=== PATIENT | male | born 1980 | race Caucasian/White ===

== ENCOUNTER 2023-06-25 14:50 | Emergency (ER) | payer OTHER ==
[2023-06-25 15:07] VITALS: RESP 18; TEMP 97.7
[2023-06-25] MEDS ORDERED: ONDANSETRON 4 MG/2 ML VIAL IVP STA (16:25)
[2023-06-25] MEDS ORDERED: SODIUM CHLORIDE 0.9% 1,000 ML IV STA (16:25)
[2023-06-25] MEDS ORDERED: KETOROLAC 15 MG/ML 1 ML VIAL IVP STA (16:25)
--- NOTE | 2023-06-25 16:44 | ED ---
General Adult HPI - General Chief complaint: Abdominal Pain Stated complaint: Groin Pain Time Seen by Provider: 06/25/23 16:15 Source: patient, RN notes reviewed, old records reviewed Mode of arrival: ambulatory - History of Present Illness Initial comments: Patient is a 43-year-old male presents for a department for right lower quadrant abdominal/groin pain. He has been ongoing for 3-4 days. 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 States the patient is more or less constant. No known palliative or provocative factors. Sometimes elevation in the testicles does help with the pain. Denies any dysuria or hematuria. Denies any diarrhea, nausea, vomiting, constipation. Denies any history of STDs. Denies any penile discharge. Presents for further evaluation at this time. Denies chest pain or shortness of breath. No known sick contacts. - Related Data Previous Rx's Medication Instructions Recorded Ondansetron Odt [Zofran Odt] 4 mg PO Q8HR PRN 2 Days #6 tab 06/25/23 Tamsulosin [Flomax] 0.4 mg PO DAILY 7 Days #7 cap 06/25/23 Allergies Allergy/AdvReac Type Severity Reaction Status Date / Time No Known Allergies Allergy Verified 06/25/23 15:07 Review of Systems ROS Statement: Those systems with pertinent positive or pertinent negative responses have been documented in the HPI. Review of Systems: CONST: Denies fever EYES: Denies blurry vision ENT: Denies nasal congestion C/V: Denies Chest pain RESP: Denies shortness of breath GI: Endorses abdominal pain : Endorses intermittent right scrotal pain SKIN: Denies rash. MSK: Denies joint pain. NEURO: Denies headache ROS Other: All systems not noted in ROS Statement are negative. Past Medical History Past Medical History: No Reported History, Hypertension History of Any Multi-Drug Resistant Organisms: None Reported Past Surgical History: No Surgical Hx Reported Past Psychological History: No Psychological Hx Reported Smoking Status: Never smoker Past Alcohol Use History: Rare Past Drug Use History: Marijuana General Exam - General Exam Comments Initial Comments: General: Appears in no acute distress. HEAD: Normal with no signs of head trauma. EYES: PERRLA, EOMI, conjunctiva normal, no discharge. ENT: Hearing grossly intact, normal oropharynx. RESPIRATORY: Clear breath sounds bilaterally. No wheezes, rales, or rhonchi. C/V: Regular rate and rhythm. S1 and S2 auscultated,peripheral pulses 2+ and intact throughout ABD: Soft, nondistended. Mild tenderness with palpation in the right lower quadrant. No guarding. No rebound tenderness. : No testicular masses or tenderness on palpation. No evidence of inguinal hernia on exam. No skin changes. No penile discharge. Unremarkable exam. EXT: Normal range of motion, no obvious deformity SKIN: No rashes or lesions observed on exposed skin. NEURO: Alert and oriented 4. No focal deficits. Course Vital Signs 06/25/23 15:04 Temperature 97.7 F Pulse Rate 52 L Respiratory 18 Rate Blood Pressure 143/93 O2 Sat by Pulse 100 Oximetry Medical Decision Making - Medical Decision Making Was pt. sent in by a medical professional or institution (, PA, OCEANOGRAPHER PHYSICAL, urgent care, hospital, or senior living...) When possible be specific @ -No Did you speak to anyone other than the patient for history (EMS, parent, family, police, friend...)? What history was obtained from this source @ -No Did you review nursing and triage notes (agree or disagree)? Why? @ -I reviewed and agree with nursing and triage notes Were old charts reviewed (outside hosp., previous admission, EMS record, old EKG, old radiological studies, urgent care reports/EKG's, senior living records)? Report findings @ -No old charts were reviewed Differential Diagnosis (chest pain, altered mental status, abdominal pain women, abdominal pain men, vaginal bleeding, weakness, fever, dyspnea, syncope, headache, dizziness, GI bleed, back pain, seizure, CVA, palpatations, mental health, musculoskeletal)? @ -Differential Abdominal Pain Men: Appendicitis, cholecystitis, diverticulosis, ischemic bowel, pancreatitis, hepatitis, UTI, gastroenteritis, AAA, incarcerated hernia, bowel obstruction, constipation, inflammatory bowel, hepatitis, peptic ulcer disease, splenic infarction, perforated viscus, testicular torsion, this is not meant to be an all-inclusive list EKG interpreted by me (3pts min.). @ -None done X-rays interpreted by me (1pt min.). @ -None done CT interpreted by me (1pt min.). @ -Patient's CT of the abdomen and pelvis obtained revealed a right sided [address] reveals mild [place] nephrosis. There are also bilateral nonobstructive renal calculi in both kidneys. U/S interpreted by me (1pt. min.). @ -Ultrasounds interpreted by radiology. Ultrasound scrotum reveals no evidence of testicular torsion. Patient does have a mild left varicocele. Ultrasound of the kidneys and bladder reveals no evidence of hydronephrosis or obstructive uropathy. What testing was considered but not performed or refused? (CT, X-rays, U/S, lab s)? Why? @ -None What meds were considered but not given or refused? Why? @ -None Did you discuss the management of the patient with other professionals (professionals i.e. , PA, OCEANOGRAPHER PHYSICAL, lab, RT, psych nurse, social service technician, package maker, teacher, youth officer, trimming caser)? Give summary @ -No Was smoking cessation discussed for >3mins.? @ -No Was critical care preformed (if so, how long)? @ -No Were there social determinants of health that impacted care today? How? (Homelessness, low income, unemployed, alcoholism, drug addiction, transportation, low edu. Level, literacy, decrease access to med. care, custodial, rehab)? @ -No Was there de-escalation of care discussed even if they declined (Discuss DNR or withdrawal of care, Hospice)? DNR status @ -No What co-morbidities impacted this encounter? (DM, HTN, Smoking, COPD, CAD, Cancer, CVA, ARF, Chemo, Hep., AIDS, mental health diagnosis, sleep apnea, morbid obesity)? @ -None Was patient admitted / discharged? Hospital course, mention meds given and route, prescriptions, significant lab abnormalities, going to OR and other pertinent info. @ -Based on the patient's presentation and physical exam, I'm concerned for acute intra-abdominal process for the patient's current symptoms. This includes possible kidney stone versus testicular torsion versus epididymitis versus appendicitis. We'll obtain abdominal laboratory studies as well as ultrasound to evaluate for nephrolithiasis as well as for testicular torsion. Vital signs within acceptable limits. Patient will receive IV Toradol, Zofran, IV fluids. Patient's ultrasound reveals no evidence to explain the patient's pain. Labs remarkable for leukocytosis of 11.4. Urine is clean. Remainder the labs within acceptable limits. At this time I updated the patient. Decision was made to obtain CT imaging. I believe this is reasonable. This was obtained. CT imaging reveals a right- sided ureteral lithiasis. Does not appear to be obstructing. Is 4 mm in size. Mild hydronephrosis. I discussed results with the patient. He is feeling improved. Resting comfortably in bed. He'll be discharged home with a Tylenol 3 starter pack, Flomax, Zofran ODT. Also be given a strainer. Recommended he follow up with urology. He is not from this area and will follow up with the urologist in his home town of [place]. He otherwise was in agreement this plan. Strict return precautions were discussed. I will provide the patient with a prescription for ODT Zofran, Flomax. I instructed the patient to follow up with their PCP in the next 1-3 days. I provided contact information for follow up with urology. I explained that the patient should return to the emergency department if they experience any worsening symptoms. Strict return precautions were discussed with the patient. The patient expressed understanding of these instructions. I answered all questions that the patient had. The patient was discharged home in good condition with their prescriptions and follow up information. Undiagnosed new problem with uncertain prognosis? @ -No Drug Therapy requiring intensive monitoring for toxicity (Heparin, Nitro, Insulin, Cardizem)? @ -No Were any procedures done? @ -No Diagnosis/symptom? @ -Right-sided ureteral lithiasis Acute, or Chronic, or Acute on Chronic? @ -Acute Uncomplicated (without systemic symptoms) or Complicated (systemic symptoms)? @ -Complicated Side effects of treatment? @ -none Exacerbation, Progression, or Severe Exacerbation] @ -no Poses a threat to life or bodily function? @ -no - Lab Data Result diagrams: 06/25/23 16:34 06/25/23 16:34 Lab Results 06/25/23 06/25/23 06/25/23 Range/Units 16:34 16:34 16:34 WBC 11.4 H (3.8-10.6) k/uL RBC 4.81 (4.30-5.90) m/uL Hgb 14.6 (13.0-17.5) gm/dL Hct 41.8 (39.0-53.0) % MCV 86.9 (80.0-100.0) fL MCH 30.4 (25.0-35.0) pg MCHC 35.0 (31.0-37.0) g/dL RDW 12.3 (11.5-15.5) % Plt Count 261 (150-450) k/uL MPV 7.8 Neutrophils % 82 % Lymphocytes % 12 % Monocytes % 4 % Eosinophils % 1 % Basophils % 1 % Neutrophils # 9.3 H (1.3-7.7) k/uL Lymphocytes # 1.4 (1.0-4.8) k/uL Monocytes # 0.5 (0-1.0) k/uL Eosinophils # 0.1 (0-0.7) k/uL Basophils # 0.1 (0-0.2) k/uL PT 10.0 (9.0-12.0) sec INR 0.9 (<1.2) APTT 24.3 (22.0-30.0) sec Sodium (137-145) mmol/L Potassium (3.5-5.1) mmol/L Chloride (98-107) mmol/L Carbon Dioxide (22-30) mmol/L Anion Gap mmol/L BUN (9-20) mg/dL Creatinine (0.66-1.25) mg/dL Est GFR (CKD-EPI)AfAm (>60 ml/min/1.73 sqM) Est GFR (CKD-EPI)NonAf (>60 ml/min/1.73 sqM) Glucose (74-99) mg/dL Plasma Lactic Acid Darrick (0.7-2.0) mmol/L Calcium (8.4-10.2) mg/dL Total Bilirubin (0.2-1.3) mg/dL AST (17-59) U/L ALT (4-49) U/L Alkaline Phosphatase (38-126) U/L Total Protein (6.3-8.2) g/dL Albumin (3.5-5.0) g/dL Amylase (30-110) U/L Lipase (23-300) U/L Urine Color Yellow Urine Appearance Clear (Clear) Urine pH 5.0 (5.0-8.0) Ur Specific [place] 1.010 (1.001-1.035) Urine Protein Negative (Negative) Urine Glucose (UA) Negative (Negative) Urine Ketones Negative (Negative) Urine Blood Trace (Negative) Urine Nitrite Negative (Negative) Urine Bilirubin Negative (Negative) Urine Urobilinogen <2.0 (<2.0) mg/dL Ur Leukocyte Esterase Negative (Negative) 06/25/23 06/25/23 Range/Units 16:34 16:34 WBC (3.8-10.6) k/uL RBC (4.30-5.90) m/uL Hgb (13.0-17.5) gm/dL Hct (39.0-53.0) % MCV (80.0-100.0) fL MCH (25.0-35.0) pg MCHC (31.0-37.0) g/dL RDW (11.5-15.5) % Plt Count (150-450) k/uL MPV Neutrophils % % Lymphocytes % % Monocytes % % Eosinophils % % Basophils % % Neutrophils # (1.3-7.7) k/uL Lymphocytes # (1.0-4.8) k/uL Monocytes # (0-1.0) k/uL Eosinophils # (0-0.7) k/uL Basophils # (0-0.2) k/uL PT (9.0-12.0) sec INR (<1.2) APTT (22.0-30.0) sec Sodium 140 (137-145) mmol/L Potassium 4.9 (3.5-5.1) mmol/L Chloride 104 (98-107) mmol/L Carbon Dioxide 26 (22-30) mmol/L Anion Gap 10 mmol/L BUN 16 (9-20) mg/dL Creatinine 1.11 (0.66-1.25) mg/dL Est GFR (CKD-EPI)AfAm >90 (>60 ml/min/1.73 sqM) Est GFR (CKD-EPI)NonAf 82 (>60 ml/min/1.73 sqM) Glucose 100 H (74-99) mg/dL Plasma Lactic Acid Darrick 1.3 (0.7-2.0) mmol/L Calcium 9.4 (8.4-10.2) mg/dL Total Bilirubin 1.2 (0.2-1.3) mg/dL AST 24 (17-59) U/L ALT 27 (4-49) U/L Alkaline Phosphatase 88 (38-126) U/L Total Protein 7.8 (6.3-8.2) g/dL Albumin 4.4 (3.5-5.0) g/dL Amylase 52 (30-110) U/L Lipase 84 (23-300) U/L Urine Color Urine Appearance (Clear) Urine pH (5.0-8.0) Ur Specific [place] (1.001-1.035) Urine Protein (Negative) Urine Glucose (UA) (Negative) Urine Ketones (Negative) Urine Blood (Negative) Urine Nitrite (Negative) Urine Bilirubin (Negative) Urine Urobilinogen (<2.0) mg/dL Ur Leukocyte Esterase (Negative) Disposition Clinical Impression: Ureterolithiasis Disposition: HOME SELF-CARE Condition: Good Instructions (If sedation given, give patient instructions): Kidney Stones (ED) Prescriptions: Tamsulosin [Flomax] 0.4 mg PO DAILY 7 Days #7 cap Ondansetron Odt [Zofran Odt] 4 mg PO Q8HR PRN 2 Days #6 tab PRN Reason: Nausea Is patient prescribed a controlled substance at d/c from ED?: No Referrals: Matt Mckenna MD [STAFF PHYSICIAN] - 1-2 days None,Stated [REFERRING] - 1-2 days Time of Disposition: 18:49
[2023-06-25 17:15] LABS: Basophils # (A) 0.1 k/uL (0-0.2); Basophils % (A) 1 %; Eosinophils # (A) 0.1 k/uL (0-0.7); Eosinophils % (A) 1 %; HCT 41.8 % (39.0-53.0); HGB 14.6 gm/dL (13.0-17.5); Lymphocytes # (A) 1.4 k/uL (1.0-4.8); Lymphocytes % (A) 12 %; MCH 30.4 pg (25.0-35.0); MCV 86.9 fL (80.0-100.0); Mean Platelet Volume 7.8; Monocytes # (A) 0.5 k/uL (0-1.0); Monocytes % (A) 4 %; Neutrophils # (A) 9.3 k/uL (1.3-7.7); Neutrophils % (A) 82 %; Platelet Count 261 k/uL (150-450); RBC 4.81 m/uL (4.30-5.90); RDW 12.3 % (11.5-15.5); WBC 11.4 k/uL (3.8-10.6)
[2023-06-25 17:41] LABS: Appearance,Urine Clear (Clear); Bilirubin,Urine Negative (Negative); Blood,Urine Trace (Negative); Color,Urine Yellow; Glucose,Urine (UA) Negative (Negative); Ketones,Urine Negative (Negative); Protein,Urine Negative (Negative)
[2023-06-25 17:42] LABS: Leukocyte Esterase,Urine Negative (Negative); Nitrite,Urine Negative (Negative); Urobilinogen,Urine <2.0 mg/dL (<2.0)
[2023-06-25 17:48] LABS: INR 0.9 (<1.2); Partial Thromboplastin Time 24.3 sec (22.0-30.0)
[2023-06-25 17:56] LABS: ALT 27 U/L (4-49); AST 24 U/L (17-59); African American GFR (CKD) >90 (>60 ml/min/1.73 sqM); Albumin 4.4 g/dL (3.5-5.0); Alkaline Phosphatase 88 U/L (38-126); Amylase 52 U/L (30-110); Anion Gap 10 mmol/L; Blood Urea Nitrogen 16 mg/dL (9-20); Calcium 9.4 mg/dL (8.4-10.2); Carbon Dioxide 26 mmol/L (22-30); Chloride 104 mmol/L (98-107); Glucose 100 mg/dL (74-99); Lipase 84 U/L (23-300); Non-African American GFR(CKD) 82 (>60 ml/min/1.73 sqM); Potassium 4.9 mmol/L (3.5-5.1); Sodium 140 mmol/L (137-145); Total Bilirubin 1.2 mg/dL (0.2-1.3); Total Protein 7.8 g/dL (6.3-8.2)
--- NOTE | 2023-06-25 18:03 | US ---
EXAMINATION TYPE: US renals and bladder DATE OF EXAM: 06/25/2023 COMPARISON: NONE CLINICAL INDICATION: Male, 43 years old with history of eval for right renal stone; h/o renal stones, passed one recently, RLQ pain EXAM MEASUREMENTS: Right Kidney: 11.2 x 5.2 x 6.9 cm Left Kidney: 10.7 x 4.4 x 5.2 cm Right Kidney: Tiny echogenic foci may represent small stones, 6mm and 4mm Left Kidney: No hydronephrosis or masses seen Bladder: wnl There is no evidence for hydronephrosis at this point in time. Couple of nonobstructing right renal c alculi measuring to 6 mm. No masses are identified. The urinary bladder is anechoic. IMPRESSION: 1. No hydronephrosis. 2. Nonobstructive right renal calculi.
--- NOTE | 2023-06-25 18:06 | US ---
EXAMINATION TYPE: US scrotum with doppler. Grayscale and color Doppler Duplex imaging performed of t trent scrotum. DATE OF EXAM: 06/25/2023 COMPARISON: NONE CLINICAL INDICATION: Male, 43 years old with history of history of torsion age 14. right testicle xavier n; RLQ pain that extends into groin for 3 days, no swelling, no injury, h/o surgical repair for torsi on at age 14 EXAM MEASUREMENTS: TESTICLES: Right Testicle: 4.5 x 3.3 x 2.1 cm Left Testicle: 4.5 x 3.0 x 2.3 cm EPIDIDYMIS HEAD: Right Epididymis: 1.1 cm Left Epididymis: 1.1 cm Doppler performed to assess for testicular vascularity; good bilateral color flow and waveforms are s een. There is no evidence of testicular torsion. Presence of hydroceles: n Presence of varicoceles: yes, mild on the left Both testicles demonstrate mildly heterogenous echotexture with tiny parenchymal calcifications withi n the left testicle. IMPRESSION: 1. No evidence for testicular torsion or mass. 2. Mild left varicocele.
--- NOTE | 2023-06-25 18:44 | CT ---
EXAMINATION TYPE: CT abdomen pelvis w con CT DLP: 1476.4 mGycm, Automated exposure control for dose reduction was used. DATE OF EXAM: 06/25/2023 6:36 PM COMPARISON: Scrotal and renal ultrasound of same date. CLINICAL INDICATION:Male, 43 years old with history of RLQ pain; RLQ pain, groin pain TECHNIQUE: Standard CT of the abdomen and pelvis following the administration of 100 cc of Isovue 3 70 IV contrast material. Coronal and sagittal reformats were performed. FINDINGS: LOWER CHEST: Unremarkable ABDOMEN LIVER: Diffusely hypoattenuating parenchyma. No focal lesion. GALLBLADDER AND BILE DUCTS: Unremarkable. PANCREAS: Unremarkable. SPLEEN: Unremarkable. ADRENAL GLANDS: Unremarkable. KIDNEYS AND URETERS: The kidneys enhance symmetrically. Mild right hydroureteronephrosis with perinep hric and periureteral fat stranding. Obstructing calculus is identified within the proximal third ure ter measuring up to 4 mm. Additional nonobstructing bilateral renal calculi the largest in the right inferior pole measuring 4 mm the largest in the left inferior pole measuring 12 mm. There are total o f at least 6 calculi within the left kidney and 4 in the right kidney. Contrast is demonstrated withi n the left collecting system only. Bilateral subcentimeter hypodense foci within both kidneys which a re too small to characterize but likely represent cysts. PELVIS BLADDER: Unremarkable REPRODUCTIVE: Unremarkable. ABDOMEN & PELVIS STOMACH AND BOWEL: Stomach and duodenum are unremarkable. No focal bowel wall thickening or surroundi ng inflammatory changes. The appendix is within normal limits. No evidence of bowel obstruction. PERITONEUM: No evidence of pneumoperitoneum or free fluid. VASCULATURE: No evidence of aortic aneurysm. MUSCULOSKELETAL: No acute osseous abnormalities LYMPH NODES: No gross evidence for lymphadenopathy. SOFT TISSUE/ABDOMINAL WALL: Small fat filled right inguinal hernia. IMPRESSION: 1. Mild right hydroureteronephrosis with an obstructing 4 mm calculus within the proximal third urete r. 2. Nonobstructive bilateral renal calculi. 3. Hepatic steatosis.
[2023-06-25] MEDS ORDERED: ACET/COD 300 MG/30 MG STARTER PACK 6 TAB BTL PO STA (18:59)
[2023-06-25] MEDS ORDERED: TAMSULOSIN 0.4 MG CAP.ER.24H PO STA (18:59)
[2023-06-25] MEDS ORDERED: ONDANSETRON 4 MG ODT STARTER PACK 2 TAB BTL PO STA (18:59)
[2023-06-25 19:12] VITALS: BP 150/78; PULSE 84
== END 2023-06-25 19:12 | disposition home or self-care (01) ==
LOC: EC 14:50
DX: N13.2 Hydronephrosis with renal and ureteral calculous obstruction (principal); I10 Essential (primary) hypertension; F12.90 Cannabis use, unspecified, uncomplicated
CPT/HCPCS: 36415; 80053; 82150; 83605; 83690; 85025; 85610; 85730; 81001; 93975; 76870; 76770; 74177; 99284; 96374; 96375; 96361; J2405; J1885; S0119; Q9967